=== PATIENT | female | born 1965 | race Caucasian/White ===

== ENCOUNTER 2017-01-02 15:37 | Emergency (ER) | payer BC ==
[~2017-01-02] VITALS: Ht 175.3 cm; Wt 70.0 kg
[~2017-01-02 15:37] MED LIST: MISCCAP55 PO; MULT-506 PO; THYROID SUPPORT PO
[2017-01-02 15:41] VITALS: Ht 175.3 cm; Wt 70.0 kg
[2017-01-02] MEDS ORDERED: SODIUM CHLORIDE 0.9% 1000ML 1,000 ML IV STA (16:20)
[2017-01-02] MEDS ORDERED: MoRPHine SULFATE 10 MG/ML CARP/VIAL IV STA (16:20)
[2017-01-02] MEDS ORDERED: ONDANSETRON INJ 2 MG/ML 2 ML VIAL IV STA (16:20)
[2017-01-02] MEDS ORDERED: PRLSR20 PO (16:35)
[2017-01-02] MEDS ORDERED: COD1OIL4 PO (16:35)
[2017-01-02] MEDS ORDERED: GLUC500C4 PO (16:35)
[2017-01-02] MEDS ORDERED: TURMPOW PO (16:35)
[2017-01-02 16:55] LABS: BASO % 0.2 %; BASO ABS # 0.01 K/uL (0-0.2); COMPLETE YES; HEMATOCRIT 43.4 % (37-47); IG% 0.2 %; LYMPH % 16.8 %; LYMPH ABS # 0.69 K/uL (1.2-3.4); MEAN CELL VOLUME 90.2 fL (80-100); MEAN CORPUSCULAR HEMOGLOBIN 31.6 pg (25-34); MEAN PLATELET VOLUME 8.6 fL (7.4-10.4); NEUT % 72.8 %; PLATELET COUNT 165 K/uL (130-400); RED BLOOD COUNT 4.81 M/uL (4.2-5.4); WHITE BLOOD COUNT 4.11 K/uL (4.8-10.8)
[2017-01-02] MEDS ORDERED: CYAN500T PO (17:07)
[2017-01-02 17:19] LABS: BUN/CREATININE RATIO 12.8 (10-20); CALCIUM 9.6 mg/dl (8.5-10.1); CREATININE 0.87 mg/dl (0.60-1.20); POTASSIUM 3.4 mmol/L (3.5-5.1)
[2017-01-02 17:20] LABS: URINE APPEARANCE CLEAR (CLEAR); URINE BILIRUBIN NEG (NEG); URINE COLOR DK YELLOW; URINE EPITHELIAL CELL AUTO >30 /lpf (0-5); URINE NITRITE NEG (NEG); URINE PH >= 9.0 (4.5-7.5); URINE SPECIFIC GRAVITY 1.015 (1.000-1.030); UROBILINOGEN NEG (NEG)
[2017-01-02 17:28] LABS: MANUAL MICROSCOPIC REQUIRED? NO; REVIEW REQ? NO
[2017-01-02 17:55] LABS: LYME DISEASE AB IGG NEG (NEG); LYME DISEASE AB IGM NEG (NEG)
--- NOTE | 2017-01-02 18:00 | DIAGNOSTIC IMAGING REPORT ---
ABDOMEN 2VIEW W/PA CHEST RTN CLINICAL HISTORY: Abdominal pain, nausea, constipation. COMPARISON STUDY: No previous studies for comparison. FINDINGS: Erect chest reveals no free air. There is no focal pulmonary consolidation. Erect and supine views the abdomen reveal no transition zones indicate bowel obstruction. There is mild fecal retention. A rounded opacity in the liver on the supine study likely represents the gallbladder. IMPRESSION: No evidence of bowel obstruction. No evidence of free air. Electronically signed by: Shahram Milligan M.D. 01/02/2017 5:59 PM Dictated Date/Time: 01/02/2017 5:58 PM
[2017-01-02] MEDS ORDERED: MoRPHine SULFATE 4 MG/ML 1 ML CARP\\VIAL IV STA (18:23)
[2017-01-02] MEDS ORDERED: HYDR-5688 PO (18:27)
[2017-01-02 19:04] VITALS: BP 111/73; PULSE 72; TEMP 36.7; O2SAT 99
--- NOTE | 2017-01-03 00:04 | EMERGENCY ROOM VISIT NOTE ---
ED Visit Note First contact with patient: 16:07 Chief Complaint: Abdominal pain, lower back and leg pain. History of Present Illness: Ms. Dawson is a 51 year-old white female complaining of left mid quadrant abdominal pain and lumbar back pain quadrant abdominal pain. Historically patient reports she reports she was seen in this ED for similar symptoms of abdominal pain last June and no cause was found. Additionally she reports she was having abdominal pain approximately one month ago was seen by her primary care provider and started on Prilosec which resolved her symptoms. Patient reports she is currently seeing a chiropractor for a adhesive capsulitis of the right shoulder. She reports yesterday she started experiencing lumbar back pain. Today she was at the chiropractor's office and was telling him about her back pain and she reported that the chiropractor felt she had a "slipped disc". Patient reports her back pain has been constant since yesterday. She describes her pain as a sharp discomfort and places it diffusely throughout the L4 to S1 area bilaterally. She rates her discomfort 9/10. She denies true radiation of her pain but does report that she has "electric shocks" going down both posterior legs to the level of the knees. Her pain worsens with all movement of the lumbar spine. She has mild relief of her pain when she is standing up. She has not taken any medication for pain prior to arrival at the hospital. She then reports approximately 2 hours before she arrived in the emergency department she developed bilateral lower abdominal pain. She describes this as a stabbing sensation. She rates her discomfort 9/10. Her pain worsens with palpation. She has not identified any alleviating factors related to the pain. She has not taken any medications for pain. Associated with her pain she reports nausea without vomiting, she has noted increased urinary frequency but no urinary burning or hematuria and she feels like her chronic constipation has worsened. Additionally patient reports she was bitten by a tick last week and express his concerns for Lyme's disease. She denies fevers, chills, sweats, skin eruptions, skin color changes, upper respiratory tract symptoms, cough, wheezing, shortness of breath, chest pain, rectal bleeding, black/tarry stools, vaginal bleeding, genital paresthesias, bowel and bladder dysfunction, lower extremity weakness/numbness/tingling. Review of Systems: As noted above in history of present illness. All body systems were reviewed and found to be negative as noted above. Past Medical History: As previously noted. Current Medications: Medications Dose Route/Sig Max Daily Dose Days Date Category Dose Instructions Glucosamine (Glucosamine Sulfate) Unknown Strength Cap 1 Cap PO DAILY 01/02/17 Reported Turmeric (Turmeric (Curcuma Longa) (Bulk) 1 Pow Pow 1 Dose PO DAILY 01/02/17 Reported Cod Liver Oil 1 Oil Oil 1 Dose PO DAILY 01/02/17 Reported Prilosec (Omeprazole) 20 Mg Capcr 20 Mg PO DAILY 01/02/17 Reported Vitamin B-12 (Cyanocobalamin) 500 Mcg Tab 500 Mcg PO DAILY 07/08/16 Reported Allergies to Medications: Patient denies. Social History: Patient feels safe in her home environment; she denies tobacco use. Physical Examination: Vital Signs: Date Time Temp Pulse Resp B/P Pulse Ox O2 Delivery O2 Flow Rate FiO2 01/02/17 19:04 36.7 72 18 111/73 99 01/02/17 18:17 78 18 137/75 95 01/02/17 17:10 70 01/02/17 17:00 63 18 120/75 01/02/17 15:41 36.7 114 18 135/73 98 Room Air GENERAL: 51-year-old female in moderate distress due to pain, nontoxic-appearing , afebrile and hemodynamically stable. NEUROLOGICAL: Awake, alert and oriented to person, place and time. Answering questions appropriately and following commands. Normal gait. Good hand eye coordination. SKIN: Warm, dry and pink. No soft tissue eruptions or trauma noted. HEENT: Atraumatic and normocephalic. PERRLA. Sclera white and conjunctiva pink. Oral cavity moist and pink. Pharynx is nonerythematous or edematous. Speech normal. No lymphadenopathy. Trachea midline. No jugular venous distention. BACK: No tenderness over the bony cervical and thoracic spine. No tenderness or muscle spasm through the paraspinous muscles. Negative straight leg raise test. No CVA tenderness. THORAX: Lungs sounds are clear to auscultation and equal bilaterally with symmetrical chest wall. No wheezing, rales or rhonchi. No crepitus, tenderness , subcutaneous air or deformities noted. HEART: Regular rate and rhythm. No gallops, rubs or murmurs are appreciated. ABDOMEN: Flat and soft with moderate diffuse tenderness throughout the abdomen and a slight prominence of the tenderness in the left upper quadrant. Decreased bowel sounds in all quadrants. No guarding, rigidity or organomegaly. LOWER EXTREMITIES: No gross bony deformity. No shortening or Route rotations. No tenderness in the hip, thighs, knees, lower legs, ankles and feet. 2+ patellar and Achilles tendon reflexes intact and equal bilaterally. 5/5 muscle strength in flexion, extension, abduction and abduction of the hips, flexion and extension of the knees and plantar flexion and dorsiflexion of the ankles. She was able to distinguish light sensations through all dermatomes of the legs. The feet were warm and pink and capillary refill was brisk. No dependent edema, calf tenderness or cords. ED Course: Patient is assessed as noted above. Laboratory Testing: Test 01/02/17 16:44 01/02/17 16:45 Range/Units White Blood Count 4.11 4.8-10.8 K/uL Red Blood Count 4.81 4.2-5.4 M/uL Hemoglobin 15.2 12.0-16.0 g/dL Hematocrit 43.4 37-47 % Mean Corpuscular Volume 90.2 80-100 fL Mean Corpuscular Hemoglobin 31.6 25-34 pg Mean Corpuscular Hemoglobin Concent 35.0 32-36 g/dl Platelet Count 165 130-400 K/uL Mean Platelet Volume 8.6 7.4-10.4 fL Neutrophils (%) (Auto) 72.8 % Lymphocytes (%) (Auto) 16.8 % Monocytes (%) (Auto) 10.0 % Eosinophils (%) (Auto) 0.0 % Basophils (%) (Auto) 0.2 % Neutrophils # (Auto) 2.99 1.4-6.5 K/uL Lymphocytes # (Auto) 0.69 1.2-3.4 K/uL Monocytes # (Auto) 0.41 0.11-0.59 K/uL Eosinophils # (Auto) 0.00 0-0.5 K/uL Basophils # (Auto) 0.01 0-0.2 K/uL RDW Standard Deviation 46.3 36.4-46.3 fL RDW Coefficient of Variation 13.9 11.5-14.5 % Immature Granulocyte % (Auto) 0.2 % Immature Granulocyte # (Auto) 0.01 0.00-0.02 K/uL Sodium Level 138 136-145 mmol/L Potassium Level 3.4 3.5-5.1 mmol/L Chloride Level 103 98-107 mmol/L Carbon Dioxide Level 26 21-32 mmol/L Anion Gap 9.0 3-11 mmol/L Blood Urea Nitrogen 11 7-18 mg/dl Creatinine 0.87 0.60-1.20 mg/dl Est Creatinine Clear Calc Drug Dose 79.1 ml/min Estimated GFR () 88.8 Estimated GFR (Non- 76.6 BUN/Creatinine Ratio 12.8 10-20 Random Glucose 92 70-99 mg/dl Calcium Level 9.6 8.5-10.1 mg/dl Total Bilirubin 0.6 0.2-1 mg/dl Direct Bilirubin 0.1 0-0.2 mg/dl Aspartate Amino Transf (AST/SGOT) 16 15-37 U/L Alanine Aminotransferase (ALT/SGPT) 28 12-78 U/L Alkaline Phosphatase 63 45-117 U/L Total Protein 7.9 6.4-8.2 gm/dl Albumin 4.3 3.4-5.0 gm/dl Lipase 186 73-393 U/L Lyme Disease IgG Antibody NEG NEG Lyme Disease IgM Antibody NEG NEG Urine Color DK YELLOW Urine Appearance CLEAR CLEAR Urine pH >= 9.0 4.5-7.5 Urine Specific Mcpherson 1.015 1.000-1.030 Urine Protein NEG NEG Urine Glucose (UA) NEG NEG Urine Ketones 1+ NEG Urine Occult Blood NEG NEG Urine Nitrite NEG NEG Urine Bilirubin NEG NEG Urine Urobilinogen NEG NEG Urine Leukocyte Esterase TRACE NEG Urine WBC (Auto) 1-5 0-5 /hpf Urine RBC (Auto) 0-4 0-4 /hpf Urine Hyaline Casts (Auto) 1-5 0-5 /lpf Urine Epithelial Cells (Auto) >30 0-5 /lpf Urine Bacteria (Auto) NEG NEG Acute Abdominal X-Ray Series: Were read by myself and the radiologist and shows a normal-appearing pH chest with no signs of infiltrates, effusions or pneumothorax. Normal heart silhouette and bony anatomy. Abdominal component shows no free air, no signs of bowel obstruction and mild fecal retention. Patient was hydrated with normal saline and received a total of 10 mg of morphine IV for pain and 4 mg of Zofran IV for nausea. Patient was reassessed multiple times during her stay in the emergency department. Patient's case was reviewed with Dr. Loomis; we agreed on diagnostic approach , treatment, disposition and plan. Patient was educated about salo's findings and instructed on her treatment plan; she verbalizes understanding and agreement with this plan. Clinical Impression: Acute abdominal pain. Lumbar back pain. Decision-Making: Initially my differential diagnosis I considered kidney stone, pyelonephritis, bowel struck chin, pancreatitis, hepatitis, musculoskeletal disorder and other causes. Disposition: Patient discharged home in stable condition accompanied by a male and female friends; prior to departure she was reassessed and subjectively reported she was feeling better and rated her discomfort 3/10 Plan: Patient was placed on a sliding pain medication scale of ibuprofen, acetaminophen and Renovo; she was given appropriate precautions for narcotic use. Additionally her name was run to the state database and no red flags are noted. Patient was encouraged to use [id number] stool softeners, dietary fiber and MiraLAX until return of normal bowel movements. Patient was encouraged to follow-up with her primary care provider in 24-48 hours for recheck. Patient was encouraged return the ED for worsening/uncontrolled pain, bloody stools, fevers, genital paresthesias, bowel and bladder dysfunction, lower extremity weakness/numbness/tingling or any new/concerning symptoms.
== END 2017-01-02 19:06 | disposition home or self-care (01) ==
LOC: C.EDB 15:37
DX: R10.9 Unspecified abdominal pain (principal); M54.5 Low back pain